=== PATIENT | female | born 1990 | race Caucasian/White ===

== ENCOUNTER 2023-11-13 15:01 | Outpatient (CLI) | payer OTHER, SELFPAY ==
--- NOTE | ~2023-11-13 | DEXA_ITS ---
Bone Density Report Name: CHEYENNE SHAH Age: 33 Sex: Female Ethnicity: White Date of : 1990 Indication: height loss; Referring Provider: UNKNOWN, UNKNOWN Study: Bone densitometry was performed. Exam Date: November 13, 2023 Accession number: [id number] Bone Density: Region BMD T-score Z-score Classification AP Spine(L1-L4) 0.858 -1.7 Femoral Neck (Left) 0.635 -1.8 Total Hip (Left) 0.748 -1.5 Femoral Neck (Right) 0.676 -1.4 Total Hip (Right) 0.753 -1.5 Femoral Neck Mean 0.656 -1.6 Total Hip Mean 0.751 -1.5 World Health Organization criteria for BMD impression classify patients as: Normal (T-score at or above -1.0), Osteopenia (T-score between -1.0 and -2.5), or Osteoporosis (T-score at or below -2.5). 10-year Fracture Risk: FRAX not reported because: Premenopausal woman Clinical Information Provided by Patient: Has used the following medications: Vitamin D, Calcium, multi Patient maximum height was 63 Drinks caffeinated beverages Onset of menses at age 12 Premenopausal Number of children 0 Impression: The patient's bone mass is within expected range for age, gender and ethnicity. Discussion: BONE DENSITY IS WITHIN EXPECTED LIMITS FOR AGE, SEX AND RACE. Bone density is within expected limits for age, sex and race at all sites measured. The patient should follow a healthful lifestyle (good nutrition with adequate calcium and vitamin D, and appropriate weight-bearing exercise). Follow-Up: Consider repeating this study in 5 years or sooner if there is some new clinical indication. Reported by: CAROLINA on 11/13/2023 3:35:00 PM. Reviewed, dictated and finalized at location [facility]
== END 2023-11-13 15:02 | disposition home or self-care (01) ==
LOC: CHSIMG 15:10
DX: Z13.820 Encounter for screening for osteoporosis (principal)
CPT/HCPCS: 77080